=== PATIENT | male | born 1955 | race Caucasian/White ===

== ENCOUNTER 2021-02-19 16:44 | Emergency (ER) | payer OTHER ==
[~2021-02-19] VITALS: Ht 175.3 cm; Wt 92.7 kg
[2021-02-19 23:01] VITALS: BP 150/88
[2021-02-20 02:32] LABS: RSV AMPLIFICATION NEGATIVE (NEGATIVE)
[2021-02-20] MEDS ORDERED: DOXY-350 PO (02:38)
== END 2021-02-20 03:00 | disposition home or self-care (01) ==
LOC: M ED 16:44
DX: J01.90 Acute sinusitis, unspecified (principal); I48.91 Unspecified atrial fibrillation; I10 Essential (primary) hypertension; E78.5 Hyperlipidemia, unspecified; E66.9 Obesity, unspecified; Z88.0 Allergy status to penicillin

== ENCOUNTER 2021-03-18 12:44 | Emergency (ER) | payer OTHER ==
[~2021-03-18] VITALS: Ht 175.3 cm; Wt 107.5 kg
[~2021-03-18 12:44] MED LIST: DOXY-350 PO
--- OUTSIDE RECORDS SUMMARY | 2021-03-18 12:52 | CCD | Continuity of Care Document ---
Author Author Giacomo BANG Organization Unknown Address [id number] [place] [id number] Phone [phone] Care Team Providers Care Leasing Associate Name Role Phone BRYAN BANG AUTM [phone] Social History Type Date Description Comments Sex Unknown Procedures Date Code Description Status 01/05/2021 81610 Office/Outpatient Established Lo w MDM 20-29 Min Completed 09/18/2020 82593 Office/Outpatient Established Lo w MDM 20-29 Min Completed 08/14/2020 25507 Office/Outpatient Established Lo w MDM 20-29 Min Completed Encounters Type Date Location Provider Dx Diagnosis Office Visit 01/05/2021 11:30a [facility] SUE Wasserman I10 Essential (primary) hyperten enrique E78.5 Hyperlipidemia, unspecified Office Visit 09/18/2020 8:30a [facility] SUE Wasserman I10 Essential (primary) hyperten enrique E78.5 Hyperlipidemia, unspecified R73.03 Prediabetes Assessments Date Code Description Provider 01/05/2021 I10 Essential (primary) hypertension SUE Hart 01/05/2021 E78.5 Hyperlipidemia, unspecified SUE Barnes 09/18/2020 I10 Essential (primary) hypertension SUE Hart 09/18/2020 E78.5 Hyperlipidemia, unspecified SUE Barnes 09/18/2020 R73.03 Prediabetes SUE Hernandez 08/14/2020 I10 Essential (primary) hypertension SUE Hart 08/14/2020 E78.5 Hyperlipidemia, unspecified SUE Barnes 08/14/2020 J01.10 Acute frontal sinusitis, unspeci fied SUE Hart Plan of Treatment Future Appointment(s):* 04/08/2021 9:30 am - SUE Hart at [facility]
--- OUTSIDE RECORDS SUMMARY | 2021-03-18 12:52 | CCD ---
Author Author [facility] Organization [facility] Address Unknown Phone Unavailable Care Team Providers Care Orthotics Prosthetics Assistant Name Role Phone TONTARSKI, G BRYAN PA Unavailable Unavailable TONTARSKI, G BRYAN PA Unavailable Unavailable TONTARSKI, G BRYAN PA Unavailable Unavailable TONTARSKI, G BRYAN PA Unavailable Unavailable TONTARSKI, G BRYAN PA Unavailable Unavailable TONTARSKI, G BRYAN PA Unavailable Unavailable TONTARSKI, G BRYAN PA Unavailable Unavailable TONTARSKI, G BRYAN PA Unavailable Unavailable TONTARSKI, G BRYAN PA Unavailable Unavailable TONTARSKI, G BRYAN PA Unavailable Unavailable TONTARSKI, G BRYAN PA Unavailable Unavailable TONTARSKI, G BRYAN PA Unavailable Unavailable TONTARSKI, G BRYAN PA Unavailable Unavailable TONTARSKI, G BRYAN PA Unavailable Unavailable TONTARSKI, G BRYAN PA Unavailable Unavailable TONTARSKI, G BRYAN PA Unavailable Unavailable TONTARSKI, G BRYAN PA Unavailable Unavailable TONTARSKI, G BRYAN PA Unavailable Unavailable TONTARSKI, G BRYAN PA Unavailable Unavailable TONTARSKI, G BRYAN PA Unavailable Unavailable TONTARSKI, G BRYAN PA Unavailable Unavailable TONTARSKI, G BRYAN PA Unavailable Unavailable TONTARSKI, G BRYAN PA Unavailable Unavailable TONTARSKI, G BRYAN PA Unavailable Unavailable TONTARSKI, G BRYAN PA Unavailable Unavailable TONTARSKI, G BRYAN PA Unavailable Unavailable TONTARSKI, G BRYAN PA Unavailable Unavailable TONTARSKI, G BRYAN PA Unavailable Unavailable TONTARSKI, G BRYAN PA Unavailable Unavailable TONTARSKI, G BRYAN PA Unavailable Unavailable TONTARSKI, G BRYAN PA Unavailable Unavailable TONTARSKI, G BRYAN PA Unavailable Unavailable TONTARSKI, G BRYAN PA Unavailable Unavailable TONTARSKI, G BRYAN PA Unavailable Unavailable TONTARSKI, G BRYAN PA Unavailable Unavailable TONTARSKI, G BRYAN PA Unavailable Unavailable TONTARSKI, G BRYAN PA Unavailable Unavailable TONTARSKI, G BRYAN PA Unavailable Unavailable TONTARSKI, G BRYAN PA Unavailable Unavailable TONTARSKI, G BRYAN PA Unavailable Unavailable TONTARSKI, G BRYAN PA Unavailable Unavailable TONTARSKI, G BRYAN PA Unavailable Unavailable TONTARSKI, G BRYAN PA Unavailable Unavailable TONTARSKI, G BRYAN PA Unavailable Unavailable TONTARSKI, G BRYAN PA Unavailable Unavailable TONTARSKI, G BRYAN PA Unavailable Unavailable TONTARSKI, G BRYAN PA Unavailable Unavailable Re-disclosure Warning The records that you are about to access may contain information from federally-assisted alcohol or drug abuse programs. If such information is present, then the following federally mandated warning applies: This information has been disclosed to you from records protected by federal confidentiality rules (42 CFR part 2). The federal rules prohibit you from making any further disclosure of this information unless further disclosure is expressly permitted by the written consent of the person to whom it pertains or as otherwise permitted by 42 CFR part 2. A general authorization for the release of medical or other information is NOT sufficient for this purpose. The Federal rules restrict any use of the information to criminally investigate or prosecute any alcohol or drug abuse patient.The records that you are about to access may contain highly sensitive health information, the redisclosure of which is protected by Article 27-F of the [place] State Public Health law. If you continue you may have access to information: Regarding HIV / AIDS; Provided by facilities licensed or operated by the [facility] Office of Mental Health; or Provided by the [facility] Office for People With Developmental Disabilities. If such information is present, then the following [facility] mandated warning applies: This information has been disclosed to you from confidential records which are protected by state law. State law prohibits you from making any further disclosure of this information without the specific written consent of the person to whom it pertains, or as otherwise permitted by law. Any unauthorized further disclosure in violation of state law may result in a fine or mcc sentence or both. A general authorization for the release of medical or other information is NOT sufficient authorization for further disc losure. Family History Family Member Name Family Member Gender Family Member Status Date o f Status Description Data Source(s) Unknown Female Unknown Unknown Problem [facility] ([facility]) Unknown Unknown Problem [facility] ([facility]) Unknown Unknown Problem [facility] ([facility]) Unknown Unknown Problem [facility] ([facility]) Unknown Unknown Problem [facility] ([facility]) Unknown Unknown Problem [facility] ([facility]) father,paternal aunts x 3 ,pgm Encounters Encounter Providers Location Date Indications Data Source(s ) Outpatient Attender: BRYAN ROG[facility] 01/05/2021 11:30:00 AM EDT [facility] (Yovany Eddy MD) Outpatient Attender: BRYAN ROGERS [facility] 09/18/2020 08:30:00 AM EDT [facility] (Yovany Eddy MD) Outpatient Attender: BRYAN ROG[facility] 05/27/2020 11:00:00 AM EST [facility] (Yovany Eddy MD) Outpatient Attender: BRYAN ROGERS [facility] 02/28/2020 10:30:00 AM EDT [facility] (Yovany Eddy MD) Immunizations Vaccine Date Status Description Data Source(s) COVID-19 VACCINE Pfizer 08/29/2020 12:00:00 AM EDT completed [facility] Vaccine Series Complete: YESThis Data wa s Submitted to [facility]. COVID-19 VACCINE Pfizer 08/08/2020 12:00:00 AM EST completed [facility] Vaccine Series Complete: NOThis Data was Submitted to [facility]. INFLUENZA VIRUS VACCINE QUADRIVALENT (6 MOS AN D UP) 04/02/2020 12:00:00 AM EDT completed [facility] Medications Medication Brand Name Start Date Product Form Dose Route Admi nistrative Instructions Pharmacy Instructions Status Indications Reaction Description Data Source(s) 100 mg 02/20/2021 12:00:00 AM EDT capsule 14 TAKE ONE CAPSULE BY MOUTH TWICE A DAY TAKE ONE CAPSULE BY MOUTH TWICE A DAY SOLD: 02/20/2021 [facility] Hydrochlorothiazide 12.5 MG Oral Tablet HYDROCHLOROTHIAZIDE 08/14/2020 12:00:00 AM EST tablet 30 TAKE 1 TABLET BY MOUTH ONCE A DAY TAKE 1 TABLET BY MOUTH ONCE A DAY SOLD: 08/14/2020 [facility] 500 mg 08/14/2020 12:00:00 AM EST tablet 5 TAKE 1 TABLET BY MOUTH ONCE A DAY TAKE 1 TABLET BY MOUTH ONCE A DAY SOLD: 09/05/2020 [facility] 500 mg 05/27/2020 12:00:00 AM EST tablet 3 TAKE ONE TABLET BY MOUTH EVERY DAY FOR 3 DAYS TAKE ONE TABLET BY MOUTH EVERY DAY FOR 3 DAYS SOLD: 05/28/2020 [facility] 300 mg 02/28/2020 12:00:00 AM EDT capsule 20 TAKE ONE CAPSULE BY MOUTH TWICE A DAY TAKE ONE CAPSULE BY MOUTH TWICE A DAY SOLD: 02/28/2020 [facility] Insurance Providers Payer name Policy type / Coverage type Policy ID Covered republican ID Covered republican's relationship to jacobs Policy Jacobs Plan Information [facility] Federal Plan Commercial [id number] Self [id number] [facility] Federal Plan Commercial [id number] Self [place] [id number] SP [id number] [facility] Part B [id number] Self [id number] [employer] [facility] FEDERAL [id number] SP [id number] [facility] Part B [id number] Self [id number] [employer] Federal Service Commercial [id number] Self BLUE CROSS BLUE SHIELD FEDERAL -O/P [id number] 18 [id number] [place] FEDERAL [id number] SP [id number] [employer] P FOH [id number] S FOH [place] [id number] SP [id number] [facility] Commercial [id number] Self [id number] [facility] [id number] SP [id number] Problems, Conditions, and Diagnoses No Information Surgeries/Procedures Procedure Description Date Indications Data Source(s) OFFICE OUTPATIENT VISIT 15 MINUTES 01/05/2021 12:00:00 AM EDT [facility] (Yovany Eddy MD) OFFICE OUTPATIENT VISIT 15 MINUTES 09/18/2020 12:00:00 AM EDT [facility] (Yovany Eddy MD) OFFICE OUTPATIENT VISIT 15 MINUTES 08/14/2020 12:00:00 AM EST [facility] (Yovany Eddy MD) Results ID Date Data Source [id number] 02/20/2021 12:36:00 AM EDT [facility] Name Value Range Interpretation Code Description Data Alda rce(s) Supporting Document(s) SARS coronavirus 2 RNA [Presence] in Res piratory specimen by ISABELLA with probe detection NEGATIVE [facility] This lab was ordered by [facility] a nd reported by [facility]. Procedure Social History No Information
--- NOTE | 2021-03-18 13:27 | REP ---
INDICATION: CHEST PAIN COMPARISON: None. TECHNIQUE: PA and lateral. FINDINGS: The mediastinum and cardiac silhouette are normal. The lung kendrick are clear and without acute consolidation, effusion, or pneumothorax. The skeletal structures are intact and normal. IMPRESSION: No acute cardiopulmonary process. <Electronically signed by Cornell Gregg > 03/18/21 1709
--- OUTSIDE RECORDS SUMMARY | 2021-03-18 16:09 | CCD ---
Author Author [facility] Organization [facility] Address Unknown Phone Unavailable Care Team Providers Care Geography Instructor Name Role Phone TONTARSKI, G BRYAN PA [...] is protected by Article 27-F of the [place] State Public Health law. If you continue you may have access to information: Regarding HIV / AIDS; Provided by facilities licensed or operated by the [facility] Office of Mental Health; or Provided by the [facility] Office for People With Developmental Disabilities. If such information is present, then the following [facility] mandated warning applies: This information has been [...] law may result in a fine or chcf sentence or both. A general authorization for [...] Eddy MD) Outpatient Attender: BRYAN ROGERS [facility] 09/18/2020 08:30:00 AM EDT [facility] (Yovany Eddy MD) Outpatient Attender: BRYAN ROGERS [facility] 05/27/2020 11:00:00 AM EST [facility] (Yovany Eddy MD) Outpatient Attender: BRYAN ROGERS [facility] 02/28/2020 10:30:00 AM EDT [facility] (Yovany Eddy MD) Immunizations Vaccine Date Status Description Data Source(s) COVID-19 VACCINE Pfizer 08/29/2020 12:00:00 AM EDT completed [facility] Vaccine Series Complete: YESThis Data wa s Submitted to [facility] [employer]. COVID-19 VACCINE Pfizer 08/08/2020 12:00:00 AM EST completed [facility] Vaccine Series Complete: NOThis Data was Submitted to [facility] [employer]. INFLUENZA VIRUS VACCINE QUADRIVALENT (6 MOS AN [...] type / Coverage type Policy ID Covered libertarian ID Covered libertarian's relationship to jacobs Policy Jacobs Plan Information [facility] Federal Plan Commercial [id number] Self [id number] Federal Plan Commercial [id number] Self [place] [id number] SP [id number] [facility] Part B [id number] Self [id number] [facility] FEDERAL [id number] SP [id number] [facility] Part B [id number] Self [id number] [employer] Federal Service Commercial [id number] Self BLUE CROSS BLUE SHIELD FEDERAL -O/P [id number] 18 [id number] BC BS [place] FEDERAL [id number] SP [id number] [employer] [facility] P FOH [id number] S FOH [place] [id number] SP [id number] [facility] Commercial [id number] Self [id number] [facility] [facility] [id number] SP [id number] Problems, Conditions, and Diagnoses No Information Surgeries/Procedures Procedure Description Date Indications Data Source(s) OFFICE OUTPATIENT VISIT 15 MINUTES 01/05/2021 12:00:00 AM EDT [facility] (Yovany Eddy MD) OFFICE OUTPATIENT VISIT 15 MINUTES 09/18/2020 12:00:00 AM EDT [facility] (Yovany Eddy MD) OFFICE OUTPATIENT VISIT 15 MINUTES 08/14/2020 12:00:00 AM EST [facility] (Yovany Eddy MD) Results ID Date Data Source [id number] 02/20/2021 12:36:00 AM EDT [facility] Name Value Range Interpretation Code Description Data Alda rce(s) Supporting Document(s) SARS coronavirus 2 RNA [Presence] in Res piratory specimen by ISABELLA with probe detection NEGATIVE [facility] This lab was ordered by [facility] a nd reported by [facility]. Procedure Social History No Information
[2021-03-18] MEDS ORDERED: NS 1,000 ML IV ONE (16:30)
--- NOTE | 2021-03-18 17:53 | REPVR ---
PROCEDURE INFORMATION: Exam: CT Head Without Contrast Exam date and time: 03/18/2021 4:55 PM Age: 65 years old Clinical indication: Dizziness TECHNIQUE: Imaging protocol: Computed tomography of the head without contrast. Radiation optimization: All CT scans at this facility use at least one of these dose optimization techniques: automated exposure control; mA and/or kV adjustment per patient size (includes targeted exams where dose is matched to clinical indication); or iterative reconstruction. COMPARISON: No relevant prior studies available. FINDINGS: Brain: No intracranial hemorrhage or extra-axial fluid collection. No evidence of mass effect or midline shift. Francisco-white matter differentiation is intact. Cerebral ventricles: No ventriculomegaly. Paranasal sinuses: Visualized sinuses are unremarkable. No fluid levels. Mastoid air cells: Unremarkable. Bones/joints: No acute osseus lesion or fracture. Soft tissues: Innumerable punctate calcifications throughout the scalp soft tissues. IMPRESSION: No acute intracranial pathology. Electronically signed by: Mario Jay On 03/18/2021 17:52:30 PM
[2021-03-18 17:59] LABS: BASO % 0.5 % (0.0-1.0); EOS # 0.2 10^3/uL (0.0-0.5); EOS % 2.2 % (0.0-3.0); HEMOGLOBIN 15.8 g/dl (13.5-17.5); LYMPH # 1.4 10^3/uL (1.5-5.0); LYMPH % 17.9 % (24.0-44.0); MEAN CORPUSCULAR HEMOGLOBIN 28.8 pg (27.0-33.0); MEAN CORPUSCULAR HGB CONC 34.3 g/dl (32.0-36.5); MEAN CORPUSCULAR VOLUME 83.8 fl (80.0-96.0); MONO # 0.5 10^3/uL (0.0-0.8); NEUTROPHILS # 5.8 10^3/uL (1.5-8.5); NEUTROPHILS % 73.1 % (36.0-66.0); PLATELET COUNT, AUTOMATED 191 10^3/uL (150-450); RED BLOOD COUNT 5.49 10^6/uL (4.30-6.10); WHITE BLOOD COUNT 7.9 10^3/uL (4.0-10.0)
[2021-03-18 18:37] LABS: ALBUMIN 3.9 GM/DL (3.2-5.2); ALT/SGPT 45 U/L (12-78); BILIRUBIN,DIRECT 0.2 MG/DL (0.0-0.2); BILIRUBIN,TOTAL 1.1 MG/DL (0.2-1.0); BLOOD UREA NITROGEN 17 MG/DL (7-18); CARBON DIOXIDE LEVEL 27 MEQ/L (21-32); CHLORIDE LEVEL 104 MEQ/L (98-107); CK-MB VALUE MASS < 1.0 NG/ML (<3.6); CPK CREATINE PHOSPHOKINASE 84 U/L (39-308); CREATININE FOR GFR 1.07 MG/DL (0.70-1.30); GLOMERULAR FILTRATION RATE > 60.0 (>49); GLUCOSE, FASTING 151 MG/DL (70-100); LIPASE 64 U/L (73-393); MB/CK RELATIVE INDEX 1.19 (< OR =4); POTASSIUM SERUM 3.7 MEQ/L (3.5-5.1); SODIUM LEVEL 139 MEQ/L (136-145); TOTAL PROTEIN 7.9 GM/DL (6.4-8.2); TROPONIN I < 0.02 NG/ML (< 0.10)
[2021-03-18 20:19] VITALS: BP 132/80
[2021-03-18] MEDS ORDERED: FLON1SPR NARES (20:23)
--- NOTE | 2021-03-19 08:22 | ECGEPIP ---
[facility] - ED Test Date: 2021-03-18 Pat Name: JUVENTINO QUIROZ Department: Room: - Gender: Male Exercise Scientist: JAYLEEN : [id number] Requested By: KENDRICK Emanuel Order Number: [id number] Reading MD: Merrick Bennett Measurements Intervals [place] Rate: 58 P: 22 ID: 160 QRS: 13 QRSD: 98 T: 14 QT: 430 QTc: 422 Interpretive Statements Sinus bradycardia NONSPECIFIC T WAVE ABNORMALITY(S) NO PRIORS FOR COMPARISON Electronically Signed on 03-19-2021 8:22:27 EDT by Merrick Bennett
== END 2021-03-18 20:36 | disposition home or self-care (01) ==
LOC: M ED 12:44
DX: R00.1 Bradycardia, unspecified (principal); I10 Essential (primary) hypertension; E86.0 Dehydration; H81.399 Other peripheral vertigo, unspecified ear; H93.13 Tinnitus, bilateral; H61.23 Impacted cerumen, bilateral; I48.91 Unspecified atrial fibrillation; E78.2 Mixed hyperlipidemia; Z79.899 Other long term (current) drug therapy; Z88.0 Allergy status to penicillin